=== PATIENT | male | born 1995 | race Hispanic/Latino ===

== ENCOUNTER 2022-07-05 11:34 | Emergency (ER) | payer SELFPAY ==
[2022-07-05] MEDS ORDERED: Morphine 4 MG/ML VIAL ONE (12:31)
[2022-07-05] MEDS ORDERED: Boostrix 0.5 ML (Tdap) VIAL (>/=7 yrs of age) ONE (12:31)
== END 2022-07-05 12:46 | disposition short-term general hospital (02) ==
LOC: NAV ERS 11:34
DX: S62.635B Displaced fracture of distal phalanx of left ring finger, initial encounter for open fracture (principal); Z23 Encounter for immunization; W23.1XXA Caught, crushed, jammed, or pinched between stationary objects, initial encounter; Y99.0 Civilian activity done for income or pay
CPT/HCPCS: 90471; 90715; 93005; 96372; J2270